=== PATIENT | male | born 1985 | race Caucasian/White ===

== ENCOUNTER → 2018-08-04 15:32 | Emergency (ER) | payer OTHER ==
[~2018-08-04 15:32] MED LIST: Magnesium Chloride EC TAB* 64 MG PO ONE
[2018-08-04 20:05] LABS: ABS Basophils 0 10^3/ul (0-0.2); ABS Eosinophils 0.1 10^3/ul (0-0.6); ABS Lymphocytes 1.7 10^3/ul (1.0-4.8); ABS Monocytes 0.5 10^3/ul (0-0.8); ABS Neutrophils 3.7 10^3/ul (1.5-7.7); ABS Nucleated RBC 0 10^3/ul; Hematocrit 48 % (42-52); Hemoglobin 16.3 g/dl (14.0-18.0); Lymphocyte % 28.3 % (25-47); Mean Corpuscular HGB Conc 34 g/dl (31-36); Mean Corpuscular Hemoglobin 29 pg (27-31); Mean Corpuscular Volume 86 fL (80-94); Mean Platelet Volume 9.1 um3 (7.4-10.4); Nucleated Red Blood Cells % 0.1; Platelet Count 188 10^3/ul (150-450); Red Blood Count 5.54 10^6/ul (4.00-5.40); Red Cell Distribution Width 14 % (10.5-15); White Blood Count 6.1 10^3/ul (3.5-10.8)
[2018-08-04 20:18] LABS: EGFR Non-African American 115.4 (>60)
--- NOTE | 2018-08-04 20:26 | ED ---
Head Injury - HPI Summary HPI Summary: 32-year old male presents with syncopal episode two days ago. He states he had some alcohol and fell asleep. He states he heard the door and went stood up quickly and went to get the door and he passed out. States was out for couple seconds. He states that he passed out he hit his head. He admits to headache. No neck pain. No nausea or vomiting. He states he has had some dizziness that has been improving. States he has passed out before due to vasovagal reaction. He denies any cardiac history. No family history of syncope. He states he feels okay now except for headache. - History Of Current Complaint Chief Complaint: EDHeadInjury Stated Complaint: SYNCOPE Time Seen by Provider: 08/04/18 18:50 Pain Intensity: 2 - Allergies/Home Medications Allergies/Adverse Reactions: Allergies Allergy/AdvReac Type Severity Reaction Status Date / Time No Known Allergies Allergy Verified 08/04/18 15:45 PMH/Surg Hx/FS Hx/Imm Hx Endocrine/Hematology History: Denies: Hx Anticoagulant Therapy Cardiovascular History: Denies: Hx Hypertension Infectious Disease History: No Infectious Disease History: Denies: Traveled Outside the [place] in Last 30 Days - Family History Known Family History: Positive: Other - no fam hx of syncope - Social History Alcohol Use: Occasionally Substance Use Type: Reports: None Smoking Status (MU): Never Smoked Tobacco Review of Systems Negative: Fever Negative: Chest Pain Negative: Shortness Of Breath Negative: Vomiting Positive: Headache, Syncope All Other Systems Reviewed And Are Negative: Yes Physical Exam Triage Information Reviewed: Yes Vital Signs On Initial Exam: Initial Vitals Temp Pulse Resp BP Pulse Ox 98.4 F 51 17 127/81 100 08/04/18 15:40 08/04/18 15:40 08/04/18 15:40 08/04/18 15:40 08/04/18 15:40 Vital Signs Reviewed: Yes Appearance: Positive: Well-Appearing Skin: Positive: Warm, Dry Head/Face: Positive: Normal Head/Face Inspection, Other - no step off, racoon eyes, rocha sign Eyes: Positive: Normal, EOMI, ROE, Conjunctiva Clear ENT: Positive: Normal ENT inspection, Pharynx normal, TMs normal Neck: Positive: Other: - nontender neck Respiratory/Lung Sounds: Positive: Clear to Auscultation, Breath Sounds Present Cardiovascular: Positive: Normal, RRR Abdomen Description: Positive: Nontender, Soft Bowel Sounds: Positive: Present Musculoskeletal: Positive: Normal Neurological: Positive: Normal Psychiatric: Positive: Normal Diagnostics - Vital Signs Vital Signs Temp Pulse Resp BP Pulse Ox 08/04/18 17:39 98.6 F 49 16 111/77 100 08/04/18 15:40 98.4 F 51 17 127/81 100 - Laboratory Lab Results: Lab Results 08/04/18 08/04/18 Range/Units 19:45 19:45 WBC 6.1 (3.5-10.8) 10^3/ul RBC 5.54 H (4.00-5.40) 10^6/ul Hgb 16.3 (14.0-18.0) g/dl Hct 48 (42-52) % MCV 86 (80-94) fL MCH 29 (27-31) pg MCHC 34 (31-36) g/dl RDW 14 (10.5-15) % Plt Count 188 (150-450) 10^3/ul MPV 9.1 (7.4-10.4) um3 Neut % (Auto) 61.0 (38-83) % Lymph % (Auto) 28.3 (25-47) % [place] % (Auto) 8.0 H (0-7) % Eos % (Auto) 2.0 (0-6) % Baso % (Auto) 0.7 (0-2) % Absolute Neuts (auto) 3.7 (1.5-7.7) 10^3/ul Absolute Lymphs (auto) 1.7 (1.0-4.8) 10^3/ul Absolute Monos (auto) 0.5 (0-0.8) 10^3/ul Absolute Eos (auto) 0.1 (0-0.6) 10^3/ul Absolute Basos (auto) 0 (0-0.2) 10^3/ul Absolute Nucleated RBC 0 10^3/ul Nucleated RBC % 0.1 Sodium 138 (135-145) mmol/L Potassium 3.8 (3.5-5.0) mmol/L Chloride 104 (101-111) mmol/L Carbon Dioxide 29 (22-32) mmol/L Anion Gap 5 (2-11) mmol/L BUN 16 (6-24) mg/dL Creatinine 0.78 (0.67-1.17) mg/dL Est GFR ( Amer) 139.6 (>60) Est GFR (Non-Af Amer) 115.4 (>60) BUN/Creatinine Ratio 20.5 H (8-20) Glucose 116 H (70-100) mg/dL Calcium 9.2 (8.6-10.3) mg/dL Magnesium 1.8 L (1.9-2.7) mg/dL Total Bilirubin 0.90 (0.2-1.0) mg/dL AST 19 (13-39) U/L ALT 14 (7-52) U/L Alkaline Phosphatase 74 (34-104) U/L Total Protein 6.6 (6.4-8.9) g/dL Albumin 4.3 (3.2-5.2) g/dL Globulin 2.3 (2-4) g/dL Albumin/Globulin Ratio 1.9 (1-3) Result Diagrams: 08/04/18 19:45 08/04/18 19:45 Lab Statement: Any lab studies that have been ordered have been reviewed, and results considered in the medical decision making process. - EKG No standard instances EKG Rhythm: Sinus Bradycardia Summary of EKG Findings: sinus bradycardia Re-Evaluation - Re-Evaluation First Eval Re-Evaluation Time: 20:27 Change: Unchanged Comment: symptoms the same Head Injury Course/Dx Course Of Treatment: 32-year old male presents with syncopal episode two days ago. He states he had some alcohol and fell asleep. He states he heard the door and went stood up quickly and went to get the door and he passed out. States was out for couple seconds. He states that he passed out he hit his head. He admits to headache. No neck pain. No nausea or vomiting. He states he has had some dizziness that has been improving. States he has passed out before due to vasovagal reaction. He denies any cardiac history. No family history of syncope. He states he feels okay now except for headache. On exam normal neuro exam. Discussed with patient about CT and he choose to observe for any changing symptoms such as vomiting or worsening headache and will return for CT if that occurs. EKG shows sinus bradycardia. Labs within normal limits. Discussed likely was orthostatic or vasovagal causing him to passed out. Told to follow-up [facility]. Patient understands agrees plan. - Diagnoses Differential Diagnosis/HQI/PQRI: Concussion Without LOC, Contusion, Intracranial Bleed Provider Diagnoses: Head injury, Syncope Discharge - Sign-Out/Discharge Documenting (check all that apply): Patient Departure - Discharge Plan Condition: Good Disposition: HOME Patient Education Materials: Syncope (ED), Head Injury (ED) Forms: *School Release Referrals: No Primary Care Phys,NOPCP [Primary Care Provider] - Additional Instructions: Take Tylenol or ibuprofen for headache every 6 hours Modify activities as tolerated drink plenty of fluids Follow up with [place] within 5 days Return to ED if develop vomiting, severe headache, change in behavior, or any new or worsening symptoms - Billing Disposition and Condition Condition: GOOD Disposition: Home
[2018-08-04 20:32] LABS: Urine Appearance Clear; Urine Blood Negative (Negative); Urine Color Straw; Urine Ketones Negative (Negative); Urine Protein Negative (Negative); Urine Specific Gravity 1.009 (1.010-1.030); Urine Urobilinogen Negative (Negative)
[2018-08-04 20:37] VITALS: BP 111/76
== END | disposition home or self-care (01) ==
LOC: ED 15:32
DX: S09.90XA Unspecified injury of head, initial encounter (principal); R51 Headache; R55 Syncope and collapse; W19.XXXA Unspecified fall, initial encounter; Y92.9 Unspecified place or not applicable
CPT/HCPCS: 36415; 80053; 81003; 83735; 85025; 93005; 99282; A9270-GY